=== PATIENT | male | born 2000 | race Two or more races ===

== ENCOUNTER 2025-07-24 22:33 | Emergency (ER) | payer MEDICAID, OTHER ==
[~2025-07-24] VITALS: Ht 172.7 cm; Wt 66.0 kg
[2025-07-25 00:16] VITALS: BP 142/91; PULSE 102; RESP 19; TEMP 98.1; O2SAT 97
[2025-07-25] MEDS: RABIES IMMUNE GLOBULIN 300unit/2ml (150unit/ml) INJ IM ONE (00:26)
[2025-07-25] MEDS ORDERED: [UNRECOGNIZED DRUG - CODE] IM (00:27)
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
== END 2025-07-25 00:32 | disposition home or self-care (01) ==
LOC: ER 22:33
DX: S01.551D Open bite of lip, subsequent encounter (principal); Z20.3 Contact with and (suspected) exposure to rabies; Z29.14 Encounter for prophylactic rabies immune globulin; W55.81XD Bitten by other mammals, subsequent encounter